=== PATIENT | male | born 2005 | race Caucasian/White ===

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

== ENCOUNTER 2024-02-05 02:20 | Emergency (ER) | payer BC, OTHER ==
[~2024-02-05] VITALS: Ht 182.9 cm; Wt 104.3 kg
[~2024-02-05 02:20] MED LIST changes: +MONT4TAB71 PO; -MONT4TAB9 PO
[2024-02-05 02:28] VITALS: BP_SYST 153; PULSE 20; RESP 20; TEMP 100.1; O2SAT 98
[2024-02-05] MEDS: AMOXICILLIN/POTASSIUM CLAV 875 MG TABLET PO ONE (02:34)
[2024-02-05] MEDS: IBUPROFEN 600 MG TABLET PO ONE (02:34)
[2024-02-05] MEDS ORDERED: AUG875 PO (02:36)
[2024-02-05] MEDS ORDERED: IBUP-1969 PO (02:36)
[2024-02-05 02:40] VITALS: BP_SYST 153; PULSE 20; RESP 20; TEMP 100.1; O2SAT 98
== END 2024-02-05 02:40 | disposition home or self-care (01) ==
LOC: SED 02:20
DX: H66.93 Otitis media, unspecified, bilateral (principal); J45.909 Unspecified asthma, uncomplicated; Z91.013 Allergy to seafood; Z79.899 Other long term (current) drug therapy
CPT/HCPCS: 99283